=== PATIENT | female | born 1995 | race Caucasian/White ===

== ENCOUNTER 2021-11-16 02:21 | Emergency (ER) | payer SELFPAY ==
[2021-11-16 02:22] VITALS: BP 132/90; PULSE 84; RESP 21; TEMP 36.3; O2SAT 100; BMI 20.3
--- NOTE | 2021-11-16 02:29 | EX.ED.DYSGE1 ---
HPI History of Present Illness Chief Complaint: Seizure Informant: patient Onset/Context/Timing Onset: Today Current Severity: Gone Maximum Severity: Mild Narrative Narrative: 26-year-old female was drinking at a wedding tonight and reportedly had a seizure. History of seizure disorder. She denies any injury. Has not been recently ill. Has not been recently hospitalized. The only thing to treat her seizures with is Vistaril. She is on no antiepileptic medications. She denies any complaints or injuries. Brought in by squad. Prior similar symptoms: Yes Recent Illness/Hospitalization: No [facility] Medical History (Updated 11/16/21 @ 02:[address] Donal Figueredo MD) Leukemia Seizures Allergy/AdvReac Type Severity Reaction Status Date / Time phenytoin [From Dilantin] Allergy NEEDS Verified 11/16/21 02:31 FOLLOW-UP Social History Smoking Status: Current every day smoker tobacco type: cigarettes ROS ROS ED ROS Narrative Denies recent illness. Review of Systems ROS Unobtainable: Denies due to encephalopathy Constitutional Constitutional ED: Denies fever(s) Eyes Eyes: Denies change in vision ENT ENT ED: Denies ear pain Cardiovascular Cardiovascular: Denies chest pain Respiratory/Chest Respiratory/Chest: Denies dyspnea Gastrointestinal Gastrointestinal: Denies abdominal pain, nausea or vomiting Genitourinary Genitourinary ED: Denies dysuria Musculoskeletal Musculoskeletal: Denies myalgias Integumentary Denies rash Neurologic Neurologic: Denies headache(s) Psychiatric Psychiatric: Denies depression Endocrine Endocrinology: Denies polyuria Allergic/Immunologic Allergic/Immunologic ED: Denies urticaria EXAM Physical Exam Narrative Exam Narrative: [id number] female no acute distress. Vital signs stable afebrile. Pulse ox 100% no hypoxia. HEENT exam unremarkable atraumatic. Pupils round reactive light. Neck nontender. Trachea midline. Lungs are clear. Heart regular rhythm no murmur. Rate about 80. Chest wall nontender. Abdomen soft nontender. Moving all 4 extremities. Nontender no deformity. Back nontender. Neurologically she is awake and alert. Answering questions and following commands. Currently she is not seizing and does not appear to be postictal currently. Const Vital Signs: 11/16/21 02:22 11/16/21 03:17 Temperature 97.4 F L Temperature Source Temporal Pulse Rate 84 84 Respiratory Rate 21 H 17 Blood Pressure 132/90 H 108/63 Blood Pressure Mean 104 78 Pulse Ox 100 98 Oxygen Delivery Method Room Air Room Air Positive well nourished and well developed; Negative for obese, cachectic, contractures or unkempt General Appearance ED: well developed and NAD; Negative for unkempt, cachectic, contractures, cyanotic, diaphoretic or pallor Nutritional Appearance: Negative for cachectic or obese HEENT Reports moist mucous membranes Negative for trauma Eyes PERRL and EOMs intact bilaterally General Eye ED: Negative for pale conjunctiva or scleral icterus Neck no lymphadenopathy, supple and no JVD General: Negative for tenderness Chest Wall inspection of chest normal and palpation of chest normal Resp normal respiratory effort and clear to auscultation bilaterally Effort and Inspection: Negative for pain with movement Auscultation: Negative for rales, rhonchi or wheezes Cardio regular rate, regular rhythm, S1 normal heart sound, S2 normal heart sound and no murmurs GI normal to inspection, nondistended, normoactive bowel sounds, non-tender, non-distended and no masses Inspection: Negative for abdominal distention Auscultation: normoactive bowel sounds Palpation: soft; Negative for tender, guarding or rebound tenderness present Back/Spine no CVA tenderness General Back: Negative for CVA tenderness Cervical Spine: Negative for cervical spine tenderness Thoracic Spine / Upper Back: Negative for thoracic spinal tenderness Extremity normal to inspection General Extremety ED: Negative for edema or tenderness General Extremity: Negative for edema Neuro oriented x3 and CN's II-XII intact bilaterally Sensorium / Orientation: alert; Negative for orientation impaired, lethargic or stuporous Motor Exam: strength 5/5 throughout Psych mental status grossly normal Appearance: Negative for unkempt Attitude: No agitated Mood & Affect: Negative for depressed, anxious or tearful Skin no rashes or lesions noted and no wounds General Skin Exam: Negative for jaundice or pallor MDM MDM MDM Narrative Medical decision making narrative: 26-year-old female reportedly has a history of seizure disorder with a seizure tonight. Currently is not seizing nor she postictal. Electrolytes will be obtained. Alcohol level due to her drinking tonight. And she will be observed. Repeat exam patient is resting comfortably in emergency department at 3:06 AM. Repeat exam patient is doing well at 3:42 AM and will be discharged to home. Lab Data Attestation: I reviewed the patient's lab results. Lab results narrative: Chemistries unremarkable gap of 6. Normal BUN and creatinine. Glucose 93. Alcohol level 167. Labs: Laboratory Results - last 24 hr 11/16/21 11/16/21 02:26 02:40 Sodium 140 Potassium 3.5 Chloride 108 H Carbon Dioxide 26.0 Anion Gap 6 BUN 9 Creatinine 0.80 Estim Creat Clear Calc 106.24 Est GFR (MDRD) Af Amer 112 Est GFR (MDRD) Non-Af 93 BUN/Creatinine Ratio 11.2 Glucose 93 Calcium 9.2 Ethyl Alcohol 167.0 Discharge Plan Triage Chief Complaint: Seizure ED Provider: Donal Figueredo Dx/Rx/DC Orders Clinical Impression: Seizure, History of seizure disorder Instructions: ED Seizure, Recurrent (Adult) Primary Care Provider: Roberto Li,Out of Referrals: Roberto Li,Out of [Primary Care Provider] - As Needed Activity Restrictions/Additional Instructions: Follow-up with your primary care physician as needed. Return if worse. Disposition Disposition: Home, Self Care
[2021-11-16 02:53] LABS: Anion Gap 6 (5-15); BUN 9 mg/dL (7-18); BUN/Creat Ratio 11.2 RATIO (10-20); Calcium,Total 9.2 mg/dL (8.5-10.1); Chloride 108 mmol/L (98-107); EST Glomerular Filtration Rate 93 mL/min (>60); Est Glom Filt Rate - Afr Amer 112 mL/min (>60); Estimated Creatinine Clearance 106.24 ml/min; Glucose 93 mg/dL (74-106); Potassium 3.5 mmol/L (3.5-5.1); Sodium Level 140 mmol/L (136-145)
[2021-11-16 03:17] VITALS: BP 108/63; PULSE 84; RESP 17; O2SAT 98
--- NOTE | 2021-11-16 03:45 | ED.RN ---
Patient sleeping and will wait until closer to 7 to wake her up as [place].
[2021-11-16 03:49] VITALS: BP 107/73; PULSE 79; RESP 17
[2021-11-16 05:00] VITALS: RESP 17
[2021-11-16 06:27] VITALS: BP 94/63; PULSE 76; RESP 17; O2SAT 98
== END 2021-11-16 07:22 | disposition home or self-care (01) ==
LOC: ED 07:03
PROVIDERS: Emergency Provider Emergency Medicine; Visit Provider Emergency Medicine
DX: G40.909 Epilepsy, unspecified, not intractable, without status epilepticus (principal); F17.210 Nicotine dependence, cigarettes, uncomplicated
CPT/HCPCS: 80048; 82077; 99285; A4216